=== PATIENT | male | born 1960 | race Caucasian/White ===

== ENCOUNTER 2018-04-02 10:00 | Inpatient (IN) ==
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
[2018-04-02 10:57] LABS: Basophils % 0.3 %; Eosinophils # 0.1 K/mcL (0.0-0.6); Eosinophils % 1.4 %; Hematocrit 43.8 % (37.5-50.1); Hemoglobin 15.3 g/dL (12.9-16.9); Immature Granulocytes % 0.1 % (0-4); Lymphocytes # 1.9 K/mcL (0.6-4.6); Lymphocytes % 25.1 %; Mean Corpuscular HGB Conc 34.9 g/dL (31.6-35.5); Mean Corpuscular Hemoglobin 29.7 pg (28.0-33.3); Mean Corpuscular Volume 84.9 fL (83.0-100.0); Mean Platelet Volume 9.3 fL (9.4-12.4); Monocytes # 0.4 K/mcL (0.0-1.3); Monocytes % 5.7 %; Neutrophils # 5.2 K/mcL (1.6-8.9); Platelet Count 173 K/mcL (140-400); Red Blood Count 5.16 M/mcL (4.19-5.50); Segmented Neutrophils % 67.4 %
[2018-04-02 11:22] LABS: Acetaminophen < 10 mcg/mL (10-20); BUN/Creatinine Ratio 17 (6-26); Blood Urea Nitrogen 23 mg/dL (6-20); Calcium 9.7 mg/dL (8.6-10.3); Carbon Dioxide 25 mEq/L (23-29); Chloride 107 mEq/L (98-107); Ethanol < 10 mg/dL (Less than 10); Glucose 85 mg/dL (70-105); Osmolality,Calculated 291 (280-300); Potassium 3.8 mEq/L (3.5-5.1); Salicylate < 2.5 mg/dL (15.0-30.0); Sodium 139 mEq/L (136-145); eGFR For African Americans > 60 (> 60); eGFR For Non-African Americans 55 (> 60)
--- NOTE | 2018-04-02 12:39 | Emergency Department Note ---
Disposition Clinical Impression: Suicidal ideation Disposition: Admitted As Inpatient Condition: Fair Referrals: Yesenia Hannah GRAPHIC DESIGNER [Advanced Practice Nurse] - Forms: ED Satisfaction Letter Time of Disposition: 15:02 General Adult HPI - General Chief complaint: ED Psychiatric Symptoms Stated complaint: SI/homeless & bed bugs w/bites Time Seen by Provider: 04/02/18 10:01 Source: patient Mode of arrival: ambulatory Limitations: no limitations - History of Present Illness Pain Scale: 0 - Related Data Allergies Allergy/AdvReac Type Severity Reaction Status Date / Time No Known Allergies Allergy Verified 04/02/18 10:03 Constitutional: Denies: fever Cardiovascular: Denies: chest pain Respiratory: Denies: cough, dyspnea, wheezes Gastrointestinal: Denies: abdominal pain, nausea, vomiting, diarrhea Genitourinary: Denies: urgency, dysuria Integumentary: Denies: rash Neurological: Denies: headache, weakness Psychiatric: Reports: depression, suicidal thoughts, auditory hallucinations, visual hallucinations. Denies: homicidal thoughts Past Medical History - Past Medical History Medical history: Reports: renal disease Psychiatric history: Reports: bipolar, depression, prior suicide attempt - Social History Smoking Status: Current every day smoker Smokeless Tobacco Status: No Alcohol use: Reports: unknown Drug use: Reports: none Physical Exam - General Limitations: no limitations General appearance: alert, in no apparent distress Course Vital Signs Temperature 98.5 F 04/02/18 10:03 Pulse Rate 51 04/02/18 10:03 Respiratory Rate 20 04/02/18 10:03 Blood Pressure 131/75 04/02/18 10:03 O2 Sat by Pulse Oximetry 95 04/02/18 10:03 Temperature 98.5 F 04/02/18 10:52 Pulse Rate 51 04/02/18 10:52 Respiratory Rate 20 04/02/18 10:52 Blood Pressure 131/75 04/02/18 10:52 O2 Sat by Pulse Oximetry 95 04/02/18 10:52 Oxygen Delivery Oxygen Delivery Room Air Medical Decision Making - Lab Data Result diagrams: 04/02/18 10:49 04/02/18 10:49 Lab Results 04/02/18 04/02/18 04/02/18 Range/Units 10:49 10:49 10:52 WBC 7.7 (4.3-11.1) K/mcL RBC 5.16 (4.19-5.50) M/mcL Hgb 15.3 (12.9-16.9) g/dL Hct 43.8 (37.5-50.1) % MCV 84.9 (83.0-100.0) fL MCH 29.7 (28.0-33.3) pg MCHC 34.9 (31.6-35.5) g/dL RDW 14.0 (11.5-14.5) % Plt Count 173 (140-400) K/mcL MPV 9.3 L (9.4-12.4) fL Immature Gran % 0.1 (0-4) % Seg Neutrophils % 67.4 % Lymphocytes % 25.1 % Monocytes % 5.7 % Eosinophils % 1.4 % Basophils % 0.3 % Neutrophils # 5.2 (1.6-8.9) K/mcL Lymphocytes # 1.9 (0.6-4.6) K/mcL Monocytes # 0.4 (0.0-1.3) K/mcL Eosinophils # 0.1 (0.0-0.6) K/mcL Basophils # 0.0 (0.0-0.2) K/mcL Sodium 139 (136-145) mEq/L Potassium 3.8 (3.5-5.1) mEq/L Chloride 107 (98-107) mEq/L Carbon Dioxide 25 (23-29) mEq/L BUN 23 H (6-20) mg/dL Creatinine 1.34 H (0.70-1.30) mg/dL Est GFR ( Amer) > 60 (> 60) Est GFR (Non-Af Amer) 55 L (> 60) BUN/Creatinine Ratio 17 (6-26) Glucose 85 (70-105) mg/dL Calculated Osmolality 291 (280-300) Calcium 9.7 (8.6-10.3) mg/dL Urine Color (Yellow) Urine Clarity (Clear) Urine pH (5.0-8.0) pH Units Ur Specific [place] (1.010-1.025) Urine Protein (Neg-Trace) mg/dL Urine Glucose (UA) (Normal) mg/dL Urine Ketones (Negative) mg/dL Urine Blood (Negative) Urine Nitrite (Negative) Urine Bilirubin (Negative) Urine Urobilinogen (Normal) mg/dL Ur Leukocyte Esterase (Negative) Urine Microscopic RBC (0-3) per hpf Urine Microscopic WBC (0-3) per hpf Ur Squamous Epith Cells (None-Few) per lpf Urine Bacteria (None-Few) per hpf Hyaline Casts (None-Few) per lpf Salicylates < 2.5 L (15.0-30.0) mg/dL Urine Opiates Screen Negative (Qgkepz=133) ng/mL Acetaminophen < 10 L (10-20) mcg/mL Ur Barbiturates Screen Negative (Iaoaoo=068) ng/mL Ur Phencyclidine Scrn Negative (Cutoff=25) ng/mL Ur Amphetamines Screen Negative (Rfqqrh=2540) ng/mL U Benzodiazepines Scrn Negative (Mrhant=589) ng/mL Urine Cocaine Screen Negative (Cutoff= 300) ng/mL U Marijuana (THC) Screen Negative (Cutoff = 50) ng/mL Ur Drug Screen Interp See Below Ethyl Alcohol < 10 (Less than 10) mg/dL 04/02/18 Range/Units 12:38 WBC (4.3-11.1) K/mcL RBC (4.19-5.50) M/mcL Hgb (12.9-16.9) g/dL Hct (37.5-50.1) % MCV (83.0-100.0) fL MCH (28.0-33.3) pg MCHC (31.6-35.5) g/dL RDW (11.5-14.5) % Plt Count (140-400) K/mcL MPV (9.4-12.4) fL Immature Gran % (0-4) % Seg Neutrophils % % Lymphocytes % % Monocytes % % Eosinophils % % Basophils % % Neutrophils # (1.6-8.9) K/mcL Lymphocytes # (0.6-4.6) K/mcL Monocytes # (0.0-1.3) K/mcL Eosinophils # (0.0-0.6) K/mcL Basophils # (0.0-0.2) K/mcL Sodium (136-145) mEq/L Potassium (3.5-5.1) mEq/L Chloride (98-107) mEq/L Carbon Dioxide (23-29) mEq/L BUN (6-20) mg/dL Creatinine (0.70-1.30) mg/dL Est GFR ( Amer) (> 60) Est GFR (Non-Af Amer) (> 60) BUN/Creatinine Ratio (6-26) Glucose (70-105) mg/dL Calculated Osmolality (280-300) Calcium (8.6-10.3) mg/dL Urine Color Yellow (Yellow) Urine Clarity Clear (Clear) Urine pH 5.5 (5.0-8.0) pH Units Ur Specific [place] 1.028 H (1.010-1.025) Urine Protein Negative (Neg-Trace) mg/dL Urine Glucose (UA) Normal (Normal) mg/dL Urine Ketones Trace H (Negative) mg/dL Urine Blood Trace H (Negative) Urine Nitrite Negative (Negative) Urine Bilirubin Negative (Negative) Urine Urobilinogen 2.0 H (Normal) mg/dL Ur Leukocyte Esterase Trace H (Negative) Urine Microscopic RBC 5-15 H (0-3) per hpf Urine Microscopic WBC 0-3 (0-3) per hpf Ur Squamous Epith Cells Moderate H (None-Few) per lpf Urine Bacteria None Seen (None-Few) per hpf Hyaline Casts None Seen (None-Few) per lpf Salicylates (15.0-30.0) mg/dL Urine Opiates Screen (Nnalhq=077) ng/mL Acetaminophen (10-20) mcg/mL Ur Barbiturates Screen (Xafrgl=458) ng/mL Ur Phencyclidine Scrn (Cutoff=25) ng/mL Ur Amphetamines Screen (Gzrdhc=2628) ng/mL U Benzodiazepines Scrn (Obpnhl=486) ng/mL Urine Cocaine Screen (Cutoff= 300) ng/mL U Marijuana (THC) Screen (Cutoff = 50) ng/mL Ur Drug Screen Interp Ethyl Alcohol (Less than 10) mg/dL Attestation Statement - Attestation Attestation: I, Tony Gomez DO, examined this patient [id number] and my medical decision-making was reviewed with Dr. Nhan Kapadia Resident Physician. I agree with the documented findings, disposition and treatment plan as described except to the extent set forth below. Please see my progress notes for details. 57-year-old male presents emergency room with suicidal ideation. Patient is homeless and has been homeless for 10 years. He is denying chest pain shortness of breath headache vision changes nausea vomiting or diarrhea. Denies any illicit drug use or alcohol use. He does have a history of bipolar as well but does not take any medications. Currently is resting comfortably in the bed answering questions appropriately and does not appear to be in any distress. He is alert he is oriented and speaking full sentences. His lungs are clear his heart is regular. Patient does not have an active plan at this time but just feels that he is been so depressed and so down with everything going on that he may just 1 and his . He does not have any access to firearms at this point. Patient will be medically cleared here in the emergency room and then he will be evaluated by her psychiatric team. Patient otherwise clinically stable meal tray will be provided. Disposition pending the full workup and treatment course. See detailed documentation the physical exam, medical intervention, medical decision-making and disposition in the resident physician's note. 1315 Medical clearance has been completed. Patient is in no distress. Psychiatric team has been contacted. Patient otherwise clinical stable. 1500 Patient was evaluated by psychiatric team. They will be admitted to our facility for further evaluation and management. No other recommendations at this time.
[2018-04-02 12:47] LABS: Bilirubin,Urine Negative (Negative); Blood,Urine Trace (Negative); Clarity,Urine Clear (Clear); Color,Urine Yellow (Yellow); Glucose,Urine (UA) Normal (Normal); Ketones,Urine Trace mg/dL (Negative); Leukocyte Esterase,Urine Trace (Negative); Nitrite,Urine Negative (Negative); PH,Urine 5.5 pH Units (5.0-8.0); Protein,Urine Negative (Neg-Trace); Specific Gravity,Urine 1.028 (1.010-1.025)
[2018-04-02 12:48] LABS: Bacteria,Urine None Seen per hpf (None-Few); Hyaline Casts,Urine None Seen per lpf (None-Few); Squamous Epithelial Cell,Urine Moderate per lpf (None-Few); WBC,Urine 0-3 per hpf (0-3)
[2018-04-02 13:07] LABS: Amphetamine Screen,Urine Negative ng/mL (Cutoff=1000); Barbiturate Screen,Urine Negative ng/mL (Cutoff=200); Benzodiazepines Screen,Urine Negative ng/mL (Cutoff=200); Cannabinoid Screen,Urine Negative ng/mL (Cutoff = 50); Cocaine Screen,Urine Negative ng/mL (Cutoff= 300); Opiate Screen,Urine Negative ng/mL (Cutoff=300); Phencyclidine Screen,Urine Negative ng/mL (Cutoff=25)
[2018-04-02] MEDS ORDERED: Haloperidol Lactate 5 MG/ML VIAL IM PRN (16:28)
[2018-04-02] MEDS ORDERED: Mag Hydrox/Al Hydrox/Simeth 30 ML UDC PO PRN (16:28)
[2018-04-02] MEDS ORDERED: hydrOXYzine pamoate 25 MG CAPSULE PO PRN (16:28)
[2018-04-02] MEDS ORDERED: traZODone 50 MG TABLET PO PRN (16:28)
[2018-04-02] MEDS ORDERED: *HR* LORazepam 2 MG/ML VIAL IM PRN (16:28)
[2018-04-02] MEDS ORDERED: *HR* LORazepam 1 MG TABLET PO PRN (16:28)
[2018-04-02] MEDS ORDERED: MOM Conc 10 ML UD.LIQ PO PRN (16:28)
[2018-04-03] MEDS: Ibuprofen 400 MG TABLET PO PRN ×2 (09:00→20:30)
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
[2018-04-04] MEDS: Ibuprofen 400 MG TABLET PO PRN (15:05)
--- NOTE | 2018-04-04 15:07 | Psychiatry Progress Note ---
Date of Encounter: 04/04/18 Time of Encounter: 13:45 Subjective Interval history: Patient seen for follow-up. Case discussed with nursing staff. Staff report he is cooperative and pleasant interacting with peers and staff appropriately. Denies any problem with sleep or appetite. He is worried about his truck and pets. He denies any hopelessness or suicidal ideation and looking forward to get some help and supports from the social work assessment. He is interested in getting a job to stay busy. He is pleasant and cooperative and talkative. Review of Systems Psychiatric: Reports: suicidal ideation Results - Vital Signs Vital Signs: Temp Pulse Resp BP Pulse Ox 98.5 F 52 16 105/72 95 04/04/18 09:00 04/04/18 09:00 04/04/18 09:00 04/04/18 09:00 04/02/18 10:52 Assessment and Plan (1) Suicidal ideation Current visit: Yes Status: Acute Risks, benefits, side effects, alternatives discussed w/pt: Yes Patient agreeable to treatment: Yes Consult Discharge Plan - Plan Referrals: [facility] [Outside] Psychiatry Exam - Constitutional Vitals: Temp Pulse Resp BP Pulse Ox 98.5 F 52 16 105/72 95 04/04/18 09:00 04/04/18 09:00 04/04/18 09:00 04/04/18 09:00 04/02/18 10:52 General appearance: age & developmentally appropriate, well-groomed, well- nourished, average - Musculoskeletal Gait: normal Station: relaxed Strength & Tone: normal for patient - Psychiatric Patient Orientation: Yes Person, Yes Time, Yes Place Level of alertness: Alert Behavior: calm, cooperative Psychomotor activity: Normal Eye Contact: Maintains Eye Contact Mood Description: Euthymic/stable Affect description: congruent with mood, full range Speech Volume: Normal Speech pattern: normal rate, normal rhythm, normal tone, fluent, spontaneous Language & Vocabulary: consistent with education Thought Process: Linear, Goal Oriented Thought Content: No Suicidal ideation, No Homicidal ideation, No Overt delusions Perceptual Disturbances: No Auditory hallucinations, No Visual hallucinations Attention Span Ability: Capable of Focused Attention Memory Description: Grossly Intact Patient Reliability: Reliable Historian Fund of knowledge: Yes abstraction ability, Yes aware of current events Intelligence Estimate: Average Judgment: Limited Insight: Partial
[2018-04-05] MEDS: Ibuprofen 400 MG TABLET PO PRN (08:13)
--- NOTE | 2018-04-05 12:41 | Psychiatry Progress Note ---
Date of Encounter: 04/05/18 Time of Encounter: 12:00 Subjective Interval history: Patient seen for follow-up case discussed was nursing staff. Patient is medication compliant, cooperative and attended groups and activities. Denies any problem with sleep or appetite. He is occupied with his discharge plans and worries about his truck and living situation. He is motivated to look for job and he liked to be busy. No reports of behavioral problems or agitation. Denied any suicidal ideation. Review of Systems Psychiatric: Reports: suicidal ideation Results - Vital Signs Vital Signs: Temp Pulse Resp BP Pulse Ox 97.3 F L 61 18 98/67 95 04/05/18 09:00 04/05/18 09:00 04/05/18 09:00 04/05/18 09:00 04/02/18 10:52 Assessment and Plan (1) Suicidal ideation Current visit: Yes Status: Acute Plan: Continue hospitalization, Close observation, Suicide Precautions per unit protocol, Encourage participation in unit milieu, Group Therapy, Monitor sleep, Monitor appetite Risks, benefits, side effects, alternatives discussed w/pt: Yes Patient agreeable to treatment: Yes Consult Discharge Plan - Plan Referrals: [facility] [Outside] Psychiatry Exam - Constitutional Vitals: Temp Pulse Resp BP Pulse Ox 97.3 F L 61 18 98/67 95 04/05/18 09:00 04/05/18 09:00 04/05/18 09:00 04/05/18 09:00 04/02/18 10:52 General appearance: age & developmentally appropriate, well-groomed, well- nourished, average - Musculoskeletal Gait: normal Station: relaxed Strength & Tone: normal for patient - Psychiatric Patient Orientation: Yes Person, Yes Time, Yes Place Level of alertness: Alert Behavior: calm, cooperative, talkative Psychomotor activity: Normal Eye Contact: Maintains Eye Contact Mood Description: Euthymic/stable, Anxious Affect description: congruent with mood, full range Speech Volume: Normal Speech pattern: normal rate, normal rhythm, normal tone, fluent, spontaneous Language & Vocabulary: consistent with education Thought Process: Linear, Goal Oriented, Tangential Thought Content: No Suicidal ideation, No Homicidal ideation, No Overt delusions Perceptual Disturbances: No Auditory hallucinations, No Visual hallucinations Attention Span Ability: Capable of Focused Attention Memory Description: Grossly Intact Patient Reliability: Reliable Historian Fund of knowledge: Yes abstraction ability, Yes aware of current events Intelligence Estimate: Average Judgment: Limited Insight: Partial
[2018-04-06] MEDS: Ibuprofen 400 MG TABLET PO PRN (09:17)
--- NOTE | 2018-04-06 11:23 | Psychiatry Progress Note ---
Date of Encounter: 04/06/18 Time of Encounter: 11:21 Subjective Interval history: Patient seen and evaluated this morning. Patient reports that he is doing "okay ". Patient reports that every time he goes to go to sleep he has woken out for activities or group therapy. Patient reports that he is not having any issues with current medication and feels that it has been helpful he reports he is very motivated to get a job and to get things going he reports it hard because every time he goes anywhere with his truck he is told that he counterpart care cannot stay there. Patient reports that his mood symptoms are more stable than admission he denied any safety concerns, denied SI or HI. Patient has been medication compliant denied any side effects to medication at this time and has been pleasant and cooperative with the staff. Review of Systems Psychiatric: Reports: anxiety Results - Vital Signs Vital Signs: Temp Pulse Resp BP Pulse Ox 98.9 F 53 18 133/82 95 04/05/18 20:16 04/05/18 20:16 04/05/18 20:16 04/05/18 20:16 04/02/18 10:52 Assessment and Plan (1) Major depression Current visit: Yes Status: Acute Plan: Continue hospitalization, Encourage participation in unit milieu, Group Therapy, Monitor sleep, Monitor appetite Risks, benefits, side effects, alternatives discussed w/pt: Yes Patient agreeable to treatment: Yes Qualifiers: Major depression recurrence: recurrent Active/Remission status: currently active Major depression episode severity: mild Qualified Code(s): F33.0 - Major depressive disorder, recurrent, mild Consult Discharge Plan - Plan Additional Instructions: increase celexa 30 mg po qday Referrals: [facility] [Outside] Psychiatry Exam - Constitutional Vitals: Temp Pulse Resp BP Pulse Ox 98.9 F 53 18 133/82 95 04/05/18 20:16 04/05/18 20:16 04/05/18 20:16 04/05/18 20:16 04/02/18 10:52 General appearance: age & developmentally appropriate - Musculoskeletal Gait: normal Strength & Tone: normal for patient - Psychiatric Patient Orientation: Yes Person, Yes Time, Yes Place, Yes Circumstance Level of alertness: Alert Behavior: calm, cooperative, anxious Psychomotor activity: Normal Eye Contact: Maintains Eye Contact Mood Description: Anxious Affect description: congruent with mood Speech Volume: Normal Speech pattern: normal rate, normal rhythm, normal tone Thought Process: Intact, Logical, Linear, Goal Oriented Thought Content: Yes Intact Attention Span Ability: Capable of Focused Attention, Capable of Sustained Attention Memory Description: Grossly Intact Patient Reliability: Reliable Historian
[2018-04-07] MEDS: Ibuprofen 400 MG TABLET PO PRN (06:56)
--- NOTE | 2018-04-07 10:53 | Psychiatry Progress Note ---
Date of Encounter: 04/07/18 Time of Encounter: 10:51 Subjective Interval history: Patient seen and evaluated today patient reports that he is still feeling very anxious and somewhat "sad". Because of his situation that he said he reports that he is at times ambivalent about medication and hopes that if things are going better in his life in the long run he would be able to decrease his medication and got off it. Explained to patient how the medication works and what his options are after her and that he should follow-up with outpatient med management patient reports he feels that things still have not been set up for him to feel safe once he leaves here on the unit discussed with patient that he can speak with the social work professor to discuss the concerns that he has patient reports once these concerns are discussed he will feel more confident and stable. We will follow-up with patient tomorrow at this time patient reports he has been medication compliant and denied any side effects regarding medication. Patient is vague when discussing any ongoing safety concerns.Pt reports no issues with increase in medication yesterday and reprots he wants to see if he tolerates it well going forward Review of Systems Psychiatric: Reports: depression, anxiety, difficulty concentrating Results - Vital Signs Vital Signs: Temp Pulse Resp BP Pulse Ox 97.6 F 41 18 103/75 95 04/07/18 09:00 04/07/18 09:00 04/07/18 09:00 04/07/18 09:00 04/02/18 10:52 Assessment and Plan (1) Major depression Current visit: Yes Status: Acute Plan: Continue hospitalization, Encourage participation in unit milieu, Group Therapy, Monitor sleep, Monitor appetite Risks, benefits, side effects, alternatives discussed w/pt: Yes Patient agreeable to treatment: Yes Qualifiers: Major depression recurrence: recurrent Active/Remission status: currently active Major depression episode severity: mild Qualified Code(s): F33.0 - Major depressive disorder, recurrent, mild Consult Discharge Plan - Plan Additional Instructions: - dc planning - will monitor mood sx's Referrals: [facility] [Outside] - 04/16/18 10:00 am (The above appointment is with Chelsey Duffy. for mental health/SA coun seling. Please bring photo ID and insurance card. ) [facility] [Outside] - 04/15/18 1:00 pm (The above appointment is with Danette Forde for case management. Please bring photo ID, insurance card and medication list. Arrive 30 minutes prior to appointment and give 24 hours notice for cancellations.) Milan Kate DO [Resident] - 04/13/18 3:15 pm (The above appointment is with Dr. Kate for primary care and medication management. Please bring photo ID and insurance card.) Psychiatry Exam - Constitutional Vitals: Temp Pulse Resp BP Pulse Ox 97.6 F 41 18 103/75 95 04/07/18 09:00 04/07/18 09:00 04/07/18 09:00 04/07/18 09:00 04/02/18 10:52 General appearance: disheveled - Musculoskeletal Gait: normal Strength & Tone: normal for patient - Psychiatric Patient Orientation: Yes Person, Yes Time, Yes Place, Yes Circumstance Level of alertness: Alert Behavior: anxious Psychomotor activity: Normal Eye Contact: Maintains Eye Contact Mood Description: Depressed, Anxious Affect description: flat Speech Volume: Normal Speech pattern: normal rate, normal rhythm, normal tone Language & Vocabulary: consistent with education Thought Process: Intact Thought Content: Yes Intact Attention Span Ability: Capable of Focused Attention, Capable of Sustained Attention Memory Description: Grossly Intact, Immediate Intact Patient Reliability: Reliable Historian Intelligence Estimate: Average Judgment: Fair Insight: Partial
[2018-04-08 08:08] VITALS: BP 117/87
--- NOTE | 2018-04-08 09:22 | Discharge Summary ---
Date of Encounter: 04/08/18 Time of Encounter: 09:19 Diagnosis - Discharge Diagnosis (1) Major depression Status: Acute Qualifiers: Major depression recurrence: recurrent Active/Remission status: currently active Major depression episode severity: mild Qualified Code(s): F33.0 - Major depressive disorder, recurrent, mild Medications - Discharge Medications Prescriptions: Citalopram [CeleXA] 30 mg PO DAILY #45 tablet Citalopram [CeleXA] 30 mg PO DAILY #45 tablet 04/08/18 [Rx] 3 Allergy/AdvReac Type Severity Reaction Status Date / Time No Known Allergies Allergy Verified 04/02/18 15:07 Provider Date of admission: 04/02/18 15:17 Primary care physician: PCP NONE Discharging clinician: Irene Crum Psychiatry Exam - Constitutional Vitals: Temp Pulse Resp BP Pulse Ox 97.7 F 55 16 117/87 95 04/08/18 08:02 04/08/18 08:02 04/08/18 08:02 04/08/18 08:02 04/02/18 10:52 General appearance: age & developmentally appropriate - Musculoskeletal Gait: normal Strength & Tone: normal for patient - Psychiatric Patient Orientation: Yes Person, Yes Time, Yes Place, Yes Circumstance Level of alertness: Alert Behavior: calm, cooperative Psychomotor activity: Normal Eye Contact: Maintains Eye Contact Mood Description: Euthymic/stable Affect description: congruent with mood Speech Volume: Normal Speech pattern: normal rate, normal rhythm, normal tone, fluent Language & Vocabulary: consistent with education Thought Process: Intact, Logical, Linear, Goal Oriented Thought Content: Yes Intact Attention Span Ability: Capable of Focused Attention, Capable of Sustained Attention Memory Description: Grossly Intact Intelligence Estimate: Average Judgment: Fair Insight: Full Hospital Course Hospital course: Mr. Jimenez is a 57 year old male with past psychiatric hx of depression. Due to the inpatient psychiatric unit for safety and stabilization. After admission patient was placed on close observation observation as per unit protocol and suicide precautions. Patient was provided with milieu and group therapies during the stay on the unit patient also received psychoeducation and supportive therapy. Patient was restarted on home medications and patient was started on Celexa was titrated to 30 mg by mouth daily to help with his depression and anxiety. At the hospital course patient met with the social worker aide very frequently due to having a lot of stressors in regards to his living situation beyond attempted to work at a plan with patient so he can get some assistance on the outside. Patient was very hospital dependent due to wanting to stay because he reports not having a place to stay. Patient tolerated Celexa well with no side effects and all medications were reviewed and discussed with patient and patient was agreeable to medication management. Patient denied any safety concerns and denied SI or HI and had been med compliant and participating in therapy and activities. Due to patient's mood symptoms improved no safety concerns patient was discussed for discharge today. Mental status examination patient was alert and oriented times place and person Gen. appearance middle-aged male appears older than stated age appropriate grooming and hygiene behavior calm and cooperative eye contact appropriately maintained throughout interview speech, rate and rhythm, and volume okay affect congruent with mood. Process linear and organized thought content denied SI HI AVH no overt delusions or obsessions insight fair judgment fair attention concentration. Memory grossly intact level of intelligence average condition on discharge good Time spent discussing smoking cessation with patient: 3 to 10 minutes Does patient wish to continue nicotine replacement upon disc: No - Time Spent with Patient Total time spent providing and/or coordinating discharge services: Less than 30 minutes Assessment and Plan - Patient/Caregiver Discharge Instructions Activity: resume usual activities as tolerated, return to work Diet: regular diet - Follow up Plan Follow up with: [facility] [Outside] - 04/15/18 1:00 pm (The above appointment is with Danette Forde for case management. Please bring photo ID, insurance card and medication list. Arrive 30 minutes prior to appointment and give 24 hours notice for cancellations. You will also be seeing Elena Maurer for a psychiatric assessment and medication management on 05/08/18 at 3:00pm.) Milan Kate DO [Resident] - 04/13/18 3:15 pm (The above appointment is with Dr. Kate for primary care and medication management. Please bring photo ID and insurance card.) Disposition: Home, Self-Care Quality - Multiple Antipsychotics Patient discharged on 2 or more antipsychotic medications: No Procedures - Procedures Procedures: Medication Management, Supportive Therapy, Group Therapy, Psychoeducational Therapy
== END 2018-04-08 12:42 | disposition home or self-care (01) | DRG 751 ==
LOC: EMEROO 10:00 → 1ANU 15:17
PROVIDERS: ADMIT Psychiatry & Neurology Psychiatry; ATTEND Psychiatry & Neurology Psychiatry

== ENCOUNTER 2018-06-01 07:45 | Observation (INO) ==
--- NOTE | 2018-06-01 07:39 | General Surg History&Physical ---
Date of Encounter: 06/01/18 Time of Encounter: 07:30 Assessment and Plan (1) Encounter for screening colonoscopy Current Visit: Yes Status: Acute The assessment and plan as outlined above was discussed with the patient and/or family members who expressed understanding and agreement. All questions were answered. Colonoscopy. History of Present Illness Chief complaint: Age related screening colonoscopy HPI: Mr. Jimenez is a 57 year old male Who presents for age related screening colonoscopy. He denies abdominal pain or rectal bleeding. There is no family history of colon cancer. He now presents for age related screening colonoscopy. He is homeless. He was admitted as outpatient in a bed for bowel preparation. Past Med Surg Social Fam HX - Past Medical History Medical history: non-contributory, renal disease Psychiatric history: no psych history - Past Surgical History Surgical History: non-contributory Additional surgical history: left ankle. left shoulder. right hand surgery - Social History Smoking Status: Current every day smoker Smokeless Tobacco Status: No Alcohol use: none, unknown Drug use: none Medications and Allergies Citalopram [CeleXA] 30 mg PO DAILY #45 tablet 04/08/18 [Rx] 3 Allergy/AdvReac Type Severity Reaction Status Date / Time No Known Allergies Allergy Verified 04/02/18 15:07 Review of Systems All systems PM: The remainder of the systems were reviewed and are negative General Surgery Exam Initial Vital Signs Temp Pulse Resp BP Pulse Ox 98.1 F 69 14 99/66 94 05/31/18 14:09 05/31/18 14:09 05/31/18 14:09 05/31/18 14:09 05/31/18 14:09 - General physical appearance well developed, well nourished, no distress - Respiratory normal expansion, normal respiratory effort, clear to percussion, clear to auscultation - Cardiovascular Cardiovascular exam: Present: RRR, 15, 16 - Abdomen Abdomen general surgery: Present: bowel sounds present, soft, non tender - Neurologic Present: CN 2-12 grossly intact, normal coordination, normal sensation - Psychiatric Psychiatric general surgery: Present: appropriate, oriented to person, oriented to place, oriented to time, speech is normal, memory intact Results - Labs All other labs normal.
[~2018-06-01 07:45] MED LIST: 0.9 % Sodium Chloride 1,000 ML IVC SCH; Lidocaine -MPF 2% 2 ML VIAL ONE; Polyethylene Glycol 3350 255 GM POWDER PO ONE; Simethicone 40 MG/0.6 ML MLS IR ONE
--- NOTE | 2018-06-01 07:49 | Anesthesia Evaluation PreOp ---
Date of Encounter: 06/01/18 Time of Encounter: 07:47 - Past History Planned Operation: Colonoscopy Cardiac History: Denies any Significant Hx Pulmonary History: Smoker (20+ years) NEW MEDIA STRATEGIST History: Denies Any Significant HX Other Medical History: Other (bipolar) Anesthesia History: No Prior Anesthetic Complications, Past Anesthesia Alcohol Use: heavy Drug use: none Medications and Allergies Citalopram [CeleXA] 30 mg PO DAILY #45 tablet 04/08/18 [Rx] 3 Allergy/AdvReac Type Severity Reaction Status Date / Time No Known Allergies Allergy Verified 04/02/18 15:07 - Meds/Allergy Pre-op Review Medications Reviewed: Yes Allergies Reviewed: Yes Beta Blockers on Current Med List: No Anesthesia Exam Vital Signs/O2 Sat/Glucose, Most Recent Temp Pulse Resp BP Pulse Ox 97.8 F 84 14 104/67 97 06/01/18 07:29 06/01/18 07:29 06/01/18 07:29 06/01/18 07:29 06/01/18 07:29 Blood Glucose* 95 Height: 5'6''/1.68m Weight: 162 lbs/73.5 kg NPO (# of Hours): 8 Pain Scale: 0 Pain Scale Used: Numeric (1 - 10) - HEENT Pupil (Motor): EOMI Mallampati: II Teeth: Missing, Poor dentition Oral Opening: Greater than 3 - NEW MEDIA STRATEGIST LOC: Oriented NEW MEDIA STRATEGIST Motor: Normal RUE, Normal LUE, Normal RLE, Normal LLE, Normal Face NEW MEDIA STRATEGIST Sensory: Normal: RUE, LUE, RLE, LLE, Face - Cardiac Rhythm: Regular Murmur: None - Pulmonary Breath Sounds: bilateral Clear Respiratory Effort: Symmetrical Anesthesia Assess/Plan ASA Score: 3 Modified Herminio Scale for Level of Consciousness: Cooperative, oriented, and tranquil Anesthetic Plan: MAC Monitoring Plan: Standard Monitors
--- NOTE | 2018-06-01 08:26 | Anesthesia Evaluation Post Op ---
Date of Encounter: 06/01/18 Time of Encounter: 08:19 - Vital Signs Vital Signs: BP 86/54 P 50 R16 Spo2 96 - Lungs Lungs: Clear Ascult./Percussion - Airway Airway: Non-obstructed - Cardiovascular Regular Rate, Baseline Rhythm - Mental Status Mental Status: Alert & Oriented, Answers Appropriately - Pain Pain Scale: 0 Pain Scale used: Numeric (1 - 10) - Nausea Vomiting Nausea Vomiting: Not Present - Hydration Hydration: NPO, Has not voided - Discharge PostOp Status: Transfer Patient to floor
--- NOTE | 2018-06-01 08:37 | Discharge Summary ---
Date of Encounter: 06/01/18 Time of Encounter: 08:38 - Discharge Diagnosis (1) Encounter for screening colonoscopy Priority: Primary Status: Acute (2) Homelessness Priority: Secondary Status: Acute (3) Major depression Priority: Secondary Status: Acute Qualifiers: Major depression recurrence: recurrent Active/Remission status: currently active Major depression episode severity: mild Qualified Code(s): F33.0 - Major depressive disorder, recurrent, mild General Surgery Exam Initial Vital Signs Temp Pulse Resp BP Pulse Ox 98.1 F 69 14 99/66 94 05/31/18 14:09 05/31/18 14:05/31/18 14:05/31/18 14:05/31/18 14:09 - Hospital Course Hospital course: Mr. Jimenez is a 57 year old male who presented on 05/31/2018 for monitored bowel prep for planned screening colonoscopy. Of note patient is homeless and did require admission for bowel prep. He underwent a colonoscopy on 06/01/[address] Adames which noted internal and external hemorrhoids, and he was recommended to repeat colonoscopy and 10 years, and take Metamucil capsules to capsules daily for 6 months. No specimens were collected. We will begin discharge planning to home. - Time Spent with Patient Total time spent providing and/or coordinating discharge services: - Discharge Medications Prescriptions: Psyllium Husk [Metamucil] 0.8 gm PO QDPC #60 capsule Home Medications: Citalopram [CeleXA] 30 mg PO DAILY #45 tablet 04/08/18 [Rx] Psyllium Husk [Metamucil] 0.8 gm PO QDPC #60 capsule 06/01/18 [Rx] Allergies/Adverse Reactions: 3 Allergy/AdvReac Type Severity Reaction Status Date / Time No Known Allergies Allergy Verified 04/02/18 15:07 Date of admission: 05/31/18 13:37 Primary care physician: Milan Kate DO Consults: 06/01/18 08:30 Consult to Shield Installer [CONS] Routine Reason for SW Consult: d/c planning needs. He is homeless. Discharging clinician: Yadira Chatman Anticipated date of discharge: 06/01/18 - Patient Status Disposition: Home, Self-Care Condition: Good Functional capacity at discharge: independent ambulation Overall status at discharge: patient is back to baseline - Discharge Instructions Follow Up With: Milan Kate DO [Primary Care Provider] - Additional Instructions: Take Metamucil to caplets once daily or one fiber packet twice daily for 6 months. - Diet and Activity Activity: increase activity as tolerated Diet: advance to your usual diet
[2018-06-01] MEDS: Psyllium 1 PACKET POWD.PACK PO SCH ×3 (09:01→21:48)
[2018-06-01] MEDS: Pantoprazole 40 MG VIAL IVP SCH (09:02)
[2018-06-01] MEDS ORDERED: Propofol 500 MG/50 ML INFUS..BTL ONE (12:32)
[2018-06-02 07:21] VITALS: BP 110/66
[2018-06-02] MEDS: Pantoprazole 40 MG VIAL IVP SCH (08:22)
[2018-06-02] MEDS: Psyllium 1 PACKET POWD.PACK PO SCH (08:22)
== END 2018-06-02 12:28 | disposition home or self-care (01) ==
LOC: 3ANU → EDSTATUS 07:45
PROVIDERS: ADMIT Surgery; ATTEND Surgery